=== PATIENT | male | born 2000 | race Caucasian/White ===

== ENCOUNTER → 2023-07-12 | Outpatient (CLI) | payer OTHER, SELFPAY ==
--- NOTE | 2023-07-12 15:40 | RAD_ITS ---
EXAM: XR SPINE SCOLIOSIS, 1 VIEW CLINICAL INDICATION: SCOLIOSIS TECHNIQUE: Frontal view of the spine. COMPARISON: No relevant prior studies available. FINDINGS: VERTEBRAE: Utilizing the method of Hsieh, there is an apex left rotatory curvature in the lumbar spine is measured from the superior endplate of L2 to the inferior endplate of L4 of 15 degrees. This is likely associated with a dysplastic appearance of the L5 vertebra and possible partial sacralization of L5. Overall, this results in imbalance with the superior aspect of the visualized cervical spine projecting approximately 2.4 cm to the left of the mid sacrum. No additional evidence of segmentation or fusion anomaly. OTHER BONES/JOINTS: There is a mild pelvic tilt. The right iliac bone is approximately 0.8 cm higher than the left. DISC SPACES: No significant findings. No significant narrowing. LUNGS AND PLEURAL SPACES: The lungs are clear. HEART: The cardiac silhouette appears normal. OTHER FINDINGS: The bowel gas pattern appears normal. 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 Correlate clinically. RAD/Scoliosis 1 view IMPRESSION: 1. Utilizing the method of Hsieh, there is an apex left rotatory curvature in the lumbar spine is measured from the superior endplate of L2 to the inferior endplate of L4 of 15 degrees. This is likely associated with a dysplastic appearance of the L5 vertebra and possible partial sacralization of L5. 2. Overall, this results in imbalance with the superior aspect of the visualized cervical spine projecting approximately 2.4 cm to the left of the mid sacrum. 3. There is a mild pelvic tilt. The right iliac bone is approximately 0.8 cm higher than the left. RECOMMENDATIONS: Correlation for a limb length discrepancy. CT of the lumbar spine for more accurate assessment of vertebral anatomy. Electronically Signed: Tyler Rueda DO at 20:30 EDT ,
== END | disposition home or self-care (01) ==
PROVIDERS: PCP Family Medicine; Referring Provider Family Medicine; Visit Provider Family Medicine
DX: M54.9 Dorsalgia, unspecified (principal)
CPT/HCPCS: 72081